=== PATIENT | male | born 1960 | race Caucasian/White ===

== ENCOUNTER → 2022-04-01 | Outpatient (CLI) | payer MEDICARE ==
[~2022-04-01] VITALS: Ht 175.3 cm; Wt 57.9 kg
[2022-04-01] VITALS (13 sets, daily range): BP systolic 102–146; BP diastolic 63–77; PULSE 90–107; TEMP 97.5
[~2022-04-01] MED LIST: 00186-0370-20 IH; B-12 250 MCG PO; FLONASEALLERGY NS; ULTRAM 50MG TAB50 MG PO; VALTREX 50500 MG/TAB PO; ZYPREXA 5MG5 MG PO
--- NOTE | 2022-04-01 13:10 | NUR ---
Pt to ct per ambulation. Pt placed in prone position and monitors applied.
--- NOTE | 2022-04-01 13:35 | NUR ---
Specimen obtained by Dr Morrow and placed in formalin and RPMI solutions. Specimen labeled.
--- NOTE | 2022-04-01 14:55 | NUR ---
Int removed. catheter tip intact. 2x2 and coban to site. Pressure per coban. 1457 Discharge instructions gone over with pt. Pt verbalized understanding of instructions. Copy given to pt. Pt up to get dressed. 1505 Pt out to car per wheelchair. Pt up and into car without difficulty.
== END ==
LOC: COL.RAD 11:46
DX: C82.10 Follicular lymphoma grade II, unspecified site (principal); N28.89 Other specified disorders of kidney and ureter
CPT/HCPCS: 32108

== ENCOUNTER 2022-04-24 07:21 | Day surgery (SDC) | payer MEDICARE ==
[~2022-04-24] VITALS: Ht 175.3 cm; Wt 54.9 kg
[2022-04-24 08:39] VITALS: BP 113/67; PULSE 108; TEMP 97.4
[2022-04-24 09:53] VITALS: BP 149/71; PULSE 80; TEMP 97.3
--- NOTE | 2022-04-24 09:53 | NUR ---
PATIENT RETURNED TO BAY 6 FOLLOWING PROCEDURE. PATIENT DROWSY BUT AROUSES TO NAME AND IS ORIENTED. BREATHING REGULAR AND UNLABORED. SEE CHART FOR VITAL SIGNS. NURSE HANDOFF COMPLETED IN ROOM WITH OR NURSE AND BRADLEY Leigh CRNA. BANDAID TO LEFT NECK AND GUAZE WITH MEDIPORE TAPE PRESENT TO LEFT CHEST. DRESSINGS CLEAN, DRY AND INTACT. PATIENT DENIES PAIN AND NAUSEA. SKIN WARM AND DRY. PATIENT DAUGHTER AND GIRLFRIEND PRESENT IN ROOM. CALL LIGHT IN REACH.
[2022-04-24] MEDS ORDERED: NORCO 325 MG-51 TAB PO (09:57)
[2022-04-24 10:15] VITALS: BP 151/72; PULSE 85
[2022-04-24 10:20] VITALS: BP 139/73; PULSE 88
[2022-04-24 10:30] VITALS: BP 138/76; PULSE 87
--- NOTE | 2022-04-24 10:30 | NUR ---
PATIENT ALERT AND ORIENTED, DENIES PAIN AND NAUSEA. PATIENT HAD APPLE JUICE AND VANILLA PUDDING, BOTH TOLERATED WELL.
[2022-04-24 10:50] VITALS: BP 152/57; PULSE 86
--- NOTE | 2022-04-24 10:50 | NUR ---
PATIENT ALERT AND ORIENTED, DENIES PAIN AND NAUSEA. CHEST AND NECK DRESSINGS CLEAN, DRY AND INTACT. PATIENT AMBULATED TO RESTROOM WITH WALKER ASSIST AND STEADY GAIT. PATIENT VOIDED WITHOUT DIFFICULTY. DISCHARGE TEACHING COMPLETED WITH PRINTED EDUCATION AND INSTRUCTIONS SENT HOME WITH PATIENT. PORT A CATH PACKET SENT HOME WITH PATIENT. PATIENT AND FAMILY VERBALIZED UNDERSTANDING OF TEACHING. RIGHT WRIST IV REMOVED. PATIENT CHANGED INTO PERSONAL CLOTHING AND DISCHARGED HOME WITH DAUGHTER TRANSPORT.
== END 2022-04-24 11:15 | disposition home or self-care (01) ==
LOC: SDCO 07:21
DX: Z45.2 Encounter for adjustment and management of vascular access device (principal); C82.19 Follicular lymphoma grade II, extranodal and solid organ sites; F17.210 Nicotine dependence, cigarettes, uncomplicated
CPT/HCPCS: C1788; J0690; J1644; J2704; J7120

== ENCOUNTER 2023-03-04 09:29 | Day surgery (SDC) | payer MEDICARE ==
[2023-03-04] VITALS (12 sets, daily range): BP systolic 94–114; BP diastolic 54–75; PULSE 78–105; TEMP 97.4–98.4
[~2023-03-04] VITALS: Ht 175.3 cm; Wt 50.9 kg
[~2023-03-04 09:29] MED LIST changes: +NORCO 325 MG-51 TAB PO
[2023-03-04] MEDS ORDERED: ZOVIRAX400 MG PO (10:31)
[2023-03-04] MEDS ORDERED: FLORINEF ACETA0.1 MG PO (10:32)
[2023-03-04] MEDS ORDERED: 00186-0372-20 IH (10:32)
[2023-03-04] MEDS ORDERED: NEURONTIN100 MG/CAP PO (10:33)
[2023-03-04] MEDS ORDERED: FLONASEALLERGY NS (10:33)
[2023-03-04] MEDS ORDERED: CORLANOR7.5 MG PO (10:34)
[2023-03-04] MEDS ORDERED: ALDACTONE 25MG25 M1 PO ×2 (10:34→14:02)
[2023-03-04 10:41] LABS: INR 1.2 (0.8-3.0)
[2023-03-04 10:43] LABS: HEMATOCRIT 31.3 % (42.0-52.0); HEMOGLOBIN 10.7 g/dl (13.5-18.0); MEAN CELL VOLUME 101 fl (80.0-100.0); MEAN CORPUSCULAR HEMOGLOBIN 35 pg (27-31); MEAN CORPUSCULAR HGB CONC 34 g/dl (33.0-37.0); PLATELET COUNT 162 K/mm3 (130-400); RED BLOOD COUNT 3.09 M/mm3 (4.20-5.60); REDCELL DISTRIBUTION WIDTH-CV 12.4 % (11.5-14.5)
[2023-03-04 10:55] LABS: CALCIUM 9.3 mg/dL (8.4-10.2); CREATININE, serum 0.98 mg/dL (0.72-1.25); POTASSIUM 4.1 mmol/L (3.5-4.5)
--- NOTE | 2023-03-04 11:41 | NUR ---
Refer to [facility] report for procedural sedation/notes
--- NOTE | 2023-03-04 13:12 | NUR ---
Pt to Medical rm [id number] - recieved by RAMON Underwood - ICD insertion site dressing and initial vitals reviewed together. Pt denies pain and needs at this time - call light in reach.
[2023-03-04] MEDS ORDERED: ELIQUIS 5MG PO (13:44)
[2023-03-04] MEDS ORDERED: LASIX 20MG TABL20 MG PO (13:45)
[2023-03-04] MEDS ORDERED: DOXYCYCLINE 10100 MG PO (13:45)
[2023-03-04] MEDS ORDERED: FARXIGA10 PO (14:02)
--- NOTE | 2023-03-04 23:23 | NUR ---
NURSING SHIFT ASSESSMENT COMPLETED. THE PATIENT WAS ALERT AND ORIENTED. THE PATIENT REPORTED RIGHT UPPER CHEST INCISION PAIN 4/10. THE PATIENT HAD A NORCO ABOUT 7PM AND THE NEXT DOSE TIME WAS REVIEWED AND THE PATIENT VERBALIZED UNDERSTANDING. NO OTHER NEEDS EXPRESSED. THE PTS RIGHT UPPER CHEST DRESSING C/D/I. THE BED WAS IN THE LOW POSITION, THE BED ALARM ON, CALL LIGHT WITHIN REACH.
[2023-03-05 01:00] VITALS: BP_SYST 100
[2023-03-05 03:23] VITALS: BP 100/65; PULSE 95; TEMP 97.4
[2023-03-05 04:12] VITALS: BP_SYST 100
[2023-03-05 07:34] VITALS: BP 113/70; PULSE 94; TEMP 97.6
[2023-03-05 08:00] LABS: BASO # 0.1 K/mm3 (0.0-0.2); BASO % 0.8 % (0.0-2.0); EOS # 0.2 K/mm3 (0.0-0.7); EOS % 3.5 % (0.0-4.0); GRAN # 4.6 K/mm3 (1.4-6.5); GRAN % 72.5 % (42.2-75.2); HEMOGLOBIN 10.1 g/dl (13.5-18.0); LYMPH # 0.9 K/mm3 (1.2-3.4); LYMPH % 14.2 % (20.0-51.0); MEAN CELL VOLUME 102 fl (80.0-100.0); MEAN CORPUSCULAR HEMOGLOBIN 34 pg (27-31); MEAN CORPUSCULAR HGB CONC 33 g/dl (33.0-37.0); MONO # 0.5 K/mm3 (0.1-0.6); MONO % 8.5 % (1.7-9.3); PLATELET COUNT 147 K/mm3 (130-400); RED BLOOD COUNT 2.99 M/mm3 (4.20-5.60); REDCELL DISTRIBUTION WIDTH-CV 12.2 % (11.5-14.5)
[2023-03-05 08:07] LABS: HEMATOCRIT 30.4 % (42.0-52.0)
[2023-03-05 08:14] LABS: CREATININE, serum 1.1 mg/dL (0.72-1.25); POTASSIUM 4.1 mmol/L (3.5-4.5)
--- NOTE | 2023-03-05 08:54 | NUR ---
RADIOLOGY CALLED TO COME DO ORDERED CXR FOR PATIENT.
[2023-03-05 09:00] VITALS: BP_SYST 113
[2023-03-05 11:23] VITALS: BP 95/54; PULSE 99; TEMP 98.2
[2023-03-05] MEDS ORDERED: CEPHALEXIN500 M1 PO (13:14)
--- NOTE | 2023-03-05 16:03 | NUR ---
LASHANDA Student identified self as SW Student and completed intake with patient at bedside. Patient lives in [place], [place] with his girlfriend Aleisha Stanley (ph#[phone]). Patient sees Dr. Marybel Avila for primary care and prefers to obtain medications from [facility] in [place], [place]. Patient stated that he is independent with ADLs. Patient stated that he has a walker and a cane, but only utilizes a cane currently. Patient stated that he uses 2.5 L of oxygen at night. Patient does not currently have a DPOA-HC and stated that he is not interested in completing one at this time. Patient is covered by Medicare [employer]. Patient stated that he plans on returning home at time of discharge. Discharge Plan: Home
== END 2023-03-05 13:58 | disposition home or self-care (01) ==
LOC: MEDICAL 09:29 → COL.CAR 09:29 → MEDICAL 13:25 → COL.CAR 03-05 13:58
PROVIDERS: Internal Medicine Cardiovascular Disease
DX: I42.0 Dilated cardiomyopathy (principal); I42.8 Other cardiomyopathies; I50.22 Chronic systolic (congestive) heart failure; I95.1 Orthostatic hypotension; I05.9 Rheumatic mitral valve disease, unspecified; F17.210 Nicotine dependence, cigarettes, uncomplicated; Z23 Encounter for immunization; Z85.72 Personal history of non-Hodgkin lymphomas; Z86.718 Personal history of other venous thrombosis and embolism; Z95.828 Presence of other vascular implants and grafts; Z79.84 Long term (current) use of oral hypoglycemic drugs
CPT/HCPCS: OP; C1721; C1777; C1894; C1898; J0665-JZ; J0690; J3010; J7030; Q9967